=== PATIENT | female | born 1970 | race Caucasian/White ===

== ENCOUNTER 2021-08-14 06:06 | Day surgery (SDC) | payer OTHER ==
[~2021-08-14 06:06] MED LIST: Clindamycin Phosphate in D5W 900 MG in Premix Bag 1 BAG IV SCH; Sodium Chloride 0.9% 10 ML Syringe FLUSH PRN; Sodium Chloride 0.9% 2.5 ML Syringe FLUSH PRN; Sodium Chloride 0.9% 20 ML SDV IV PRN
[2021-08-14] MEDS ORDERED: Lactated Ringers 1,000 ML IV SCH ×2 (06:30→11:45)
[2021-08-14 07:15] LABS: BLOOD UREA NITROGEN,BUN 7 mg/dL (7.0-18.0); CARBON DIOXIDE,CO2 27.1 mmol/L (21.0-32.0); CHLORIDE,CL 105 mmol/L (98-107); GLUCOSE RANDOM 91 mg/dL (74-106); POTASSIUM,K 3.3 mmol/L (3.5-5.1); SODIUM,NA 140 mmol/L (136-145)
[2021-08-14] MEDS ORDERED: Ondansetron 4 MG/2 ML SDV IVPUSH PRN ×2 (07:25→11:43)
[2021-08-14] MEDS ORDERED: Metoclopramide 10 MG/2 ML SDV IVPUSH PRN (07:25)
[2021-08-14] MEDS ORDERED: Naloxone 0.4 MG/ML SDV IVPUSH PRN (07:25)
[2021-08-14] MEDS ORDERED: Albuterol 0.083% 2.5 MG/3 ML Neb Soln NEB PRN (07:25)
[2021-08-14] MEDS ORDERED: HYDROmorphone 1 MG/ML Syringe IVPUSH PRN (07:25)
[2021-08-14] MEDS ORDERED: fentaNYL 100 MCG/2 ML SDV IVPUSH PRN (07:25)
[2021-08-14] MEDS ORDERED: Octyl 2-Cyanoacrylate 1 Tube ONE (07:27)
[2021-08-14] MEDS ORDERED: Methylene Blue 50 MG/10 ML Ampule ONE (07:27)
[2021-08-14] MEDS ORDERED: Bupivacaine 0.25% 30 ML SDV ONE (07:28)
[2021-08-14] MEDS ORDERED: Propofol 200 MG/20 ML SDV ONE (07:29)
[2021-08-14] MEDS ORDERED: Dexmedetomidine 200 MCG/2 ML SDV ONE (07:29)
[2021-08-14] MEDS ORDERED: Ketamine 500 mg/10 ML MDV ONE (07:30)
[2021-08-14] MEDS ORDERED: fentaNYL 100 MCG/2 ML SDV ONE (07:30)
[2021-08-14] MEDS ORDERED: Water For Injection, Sterile 20 ML ONE (07:30)
[2021-08-14] MEDS ORDERED: Midazolam 1 MG/ML 2 ML SDV ONE (07:30)
[2021-08-14] MEDS ORDERED: Rocuronium Bromide 50 MG/5 ML Syringe ONE ×2 (07:55→09:18)
[2021-08-14] MEDS ORDERED: Fluorescein 5 ML Vial ONE (09:14)
[2021-08-14] MEDS ORDERED: Aztreonam 2 GM in Sodium Chloride 0.9% 100 ML IV ONE (09:15)
[2021-08-14] MEDS ORDERED: Dexamethasone 4 MG/ML 5 ML MDV ONE (09:28)
[2021-08-14] MEDS ORDERED: Sugammadex Sodium 200 MG/2 ML VIAL ONE (09:59)
[2021-08-14] MEDS ORDERED: Ondansetron 4 MG/2 ML SDV ONE (09:59)
[2021-08-14] MEDS ORDERED: Ketorolac 30 MG/ML SDV ONE (09:59)
[2021-08-14] MEDS ORDERED: Furosemide 40 MG/4 ML VIAL ONE (10:21)
[2021-08-14] MEDS ORDERED: Morphine 4 MG/ML VIAL IVPUSH PRN (11:43)
[2021-08-14] MEDS ORDERED: Acetaminophen/oxyCODONE 325-5 MG Tab PO PRN (11:43)
[2021-08-14] MEDS ORDERED: Promethazine 25 MG/ML SDV IM PRN (11:43)
[2021-08-14] MEDS ORDERED: Aluminum Hydroxide/Magnesium Hydroxide/Simethicone XS Susp 30 ML Cup PO PRN (11:43)
[2021-08-14] MEDS ORDERED: Belladonna Alkaloids/Opium 16.2-30 MG Supp RECTAL ONE (13:47)
[2021-08-14] MEDS: Acetaminophen/oxyCODONE 325-5 MG Tab PO PRN (17:52)
[2021-08-14] MEDS: Docusate Sodium 100 MG Cap PO SCH (20:34)
[2021-08-15] MEDS: Acetaminophen/oxyCODONE 325-5 MG Tab PO PRN ×4 (01:06→16:01)
[2021-08-15 06:32] LABS: BLOOD UREA NITROGEN,BUN 3 mg/dL (7.0-18.0); CARBON DIOXIDE,CO2 22.7 mmol/L (21.0-32.0); CHLORIDE,CL 105 mmol/L (98-107); GLUCOSE RANDOM 82 mg/dL (74-106); POTASSIUM,K 3.3 mmol/L (3.5-5.1); SODIUM,NA 138 mmol/L (136-145)
[2021-08-15] MEDS ORDERED: Iron Sucrose Complex 500 MG in Sodium Chloride 0.9% 250 ML IV ONE (08:40)
[2021-08-15] MEDS ORDERED: Potassium Chloride 20 MEQ Tab.ER PO ONE (08:42)
[2021-08-15] MEDS: Docusate Sodium 100 MG Cap PO SCH (09:33)
== END 2021-08-15 18:00 | disposition home or self-care (01) ==
LOC: MW.SDS 06:06 → MW.MS 10:56 → MW.SDS 08-15 18:00
PROVIDERS: ATTEND Obstetrics & Gynecology
DX: D25.1 Intramural leiomyoma of uterus (principal); D64.9 Anemia, unspecified; N83.8 Other noninflammatory disorders of ovary, fallopian tube and broad ligament; F17.220 Nicotine dependence, chewing tobacco, uncomplicated; Z88.0 Allergy status to penicillin; Z88.2 Allergy status to sulfonamides; Z88.8 Allergy status to other drugs, medicaments and biological substances; Z79.899 Other long term (current) drug therapy; Z98.890 Other specified postprocedural states; Z01.812 Encounter for preprocedural laboratory examination; Z20.822 Contact with and (suspected) exposure to COVID-19
CPT/HCPCS: 36415; 36430; 58554; 80048; 84703; 85014; 85018; 85025; 85027; 85610; 86850; 86900; 86901; 86920; 87635; A9270; J0131; J1100; J1170; J1756; J1940; J2250; J2704; J3010; J3490; J7030; J7050; J7120; P9016; 00944; J1885; J2405; U0002